=== PATIENT | female | born 2000 | race Hispanic/Latino ===

== ENCOUNTER 2025-08-11 13:19 | Outpatient (CLI) | payer OTHER, SELFPAY ==
--- OUTSIDE RECORDS SUMMARY | 2025-08-08 08:37 | XMS_ITS | Continuity of Care Document ---
Author Organization [facility] Address [address] [place] [phone] Phone Care Team Providers Care Field Laborer Name Role Phone Management, Case Unavailable Unavailable [...] 25 MG - Active Procedures Procedure Date Coronavirus AG IA (Rapid Test) STREP A, [...] Encounter [facility], [address], [place], [place], [address] , tel: [phone] [facility] No Information 5 Management Case. [address], [place], [place], [address], . tel:[phone] [facility], [address], [place], [place], [address] , [place] tel: [phone] Urgent Care swollen lymph nodes (chief complaint) Acute serous otitis media, left earLocalized enlarged lymph nodesOther thyrotoxicosis w/o thyrotoxic crisisCough, unspecifiedAcute pharyngitis, unspecifiedEncount er for test, result unknown 5 [facility] Rm[address], [place], [place], [address], . tel:[phone] [facility], [address], [place], [place], [address] , [place] tel: [phone] Urgent [facility] Acute serous otitis media, left earAcute pharyngitis, unspecifiedCough, unspecified 5 Hamlet Rm. [address], [place], [place], [address], [place]. tel:[phone] OFFICE/OUTPA TIENT VISIT, EST [facility], [address], [place], [place], [address] , [place] tel: [phone] Urgent Care medication refill (chief complaint) Other thyrotoxicosis w/o thyrotoxic crisisUTIOther specified noninflammatory disorder of vaginaEncounter for test, result unknown 5 Bruce Kent. [address], [place], [place], [address], . tel:[phone] OFFICE/OUTPA TIENT VISIT, NEW [facility], [address], [place], [place], [address] , tel: [phone] Urgent Care abdominal pain/med refill (chief complaint)h eadache (chief complaint) Other thyrotoxicosis w/o thyrotoxic crisisEncounter for screening for other disorderEncounter for test, result unknown Keny Valencia. [address], [place], [place], [address], . tel:[phone] Family History Family Member Type Diagnosis Age At Onset No Information Payers Payer name Insurance type Covered democrat ID Melba Almanzar (s) [id number] Social History Type Description Quantity Date Captured Comments Alcohol Use Details Unknown Caffeine Use Details Unknown Tobacco Use Status No Information Smoking Status No Information Sex Female Sexual Orientation Straight or heterosexual Jul Gender Identity Female Chief Complaint And Reason For Visit No Information Reason For Referral Reason For Referral No Information Plan Of Treatment Date Type Action Status Appointment Tracey Gimenez BOOKED Appointment Tracey Gimenez BOOKED Appointment Tracey Gimenez BOOKED History Of Present Illness Encounter Date Complaint [...] before. Does have an upcoming appointment with WORKERS COMPENSATION CLAIMS ASSISTANT.Denies fatigue, headache, rhinorrhea, sinus congestion, sore throat, cough, dyspnea, emesis, loss of smell or taste, or known COVID exposure.(metallurgical technician used.)Physical Exam:General: NAD. Awake, alert, conversant, cooperative, [...] methimazole 5mg x1 month. History obtained via Street[employer] Data unit leader.Pt was receiving care for hyperthyroidism in [place], but recently moved here to [place] around 1 month ago. Has been out [...]
[2025-08-11 14:09] LABS: Hematocrit 38.5 % (37.0-47.0); Hemoglobin 12.7 g/dL (12.0-15.0); Mean Corpuscular HGB Conc 33.0 g/dl (32-36); Mean Corpuscular Hemoglobin 29.7 pg (26-34); Mean Corpuscular Volume 90.2 fl (80-100); Platelet Count Result 296 k/mm3 (150-375); Red Blood Count 4.27 M/mm3 (4.2-5.4); White Blood Count 7.4 K/mm3 (4.5-10.0)
[2025-08-11 14:44] LABS: Free T4 Free Thyroxine 1.08 ng/dL (0.78-2.19)
[2025-08-11 14:52] LABS: Thyroid Stimulating Hormone 0.729 uIU/mL (0.465-4.680)
[2025-08-11 14:55] LABS: Syphilis IgG/IgM Antibody Non-Reactive (Nonreactive)
[2025-08-11 14:59] LABS: HIV 1/2 Ab P24 Ag Result Negative (Negative); Hepatitis B Surface Antigen Negative (Negative)
[2025-08-11 15:02] LABS: Beta HCG Quantitative 35971.00 mIU/ML
[2025-08-12 07:09] LABS: Varicella-Zoster Ab, IgG Non Reactive (Non Reactive)
[2025-08-12 07:09] LABS: Cytomegalovirus (CMV) Ab, IgG 2.40 U/mL (0.00-0.59)
[2025-08-16 13:08] LABS: Parvovirus B19, IgG 0.1 index (0.0-0.8); Parvovirus B19, IgM 0.3 index (0.0-0.8)
== END 2025-08-11 13:20 | disposition home or self-care (01) ==
LOC: ANHLAB 13:22
PROVIDERS: Visit Provider Student in an Organized Health Care Education/Training Program
DX: N91.2 Amenorrhea, unspecified (principal); E05.90 Thyrotoxicosis, unspecified without thyrotoxic crisis or storm; Z11.3 Encounter for screening for infections with a predominantly sexual mode of transmission
CPT/HCPCS: 36415; 84439; 84443; 84702; 85027; 86593; 86644; 86703; 86747; 86762; 86787; 86850; 86900; 86901; 87086; 87340; G0432

== ENCOUNTER 2025-10-14 11:32 | Emergency (ER) | payer OTHER, SELFPAY ==
--- OUTSIDE RECORDS SUMMARY | 2025-08-08 07:37 | XMS_ITS | Continuity of Care Document ---
Author Organization [facility] Address [address] [place] [phone] Phone Care Team Providers Care Ticket Sorter Name Role Phone Management, Case Unavailable Unavailable Allergies, Adverse Reactions, Alerts Substance Reaction Status Criticality No Known Allergies Active No Inform ation Medications Medication Instructions Dosage Effective Dates (start - stop) Status Comments Mapap (acetaminophen) 500 mg capsule take 2 capsule by oral route every 8 hours as needed as needed 1000 MG - Active methimazole 5 mg tablet take 1 tablet by oral route every day 5 MG - Active Macrobid 100 mg capsule take 1 capsule by oral route every 12 hours with food for 7 days - Active dicyclomine 20 mg tablet take 1 tablet by oral route every 6-8 hours as needed for abdominal pain - Active atenolol 25 mg tablet take 1 tablet by o ral route every day 25 MG - Active Procedures Procedure Date Voided Encounter Coronavirus AG IA (Rapid Test) STREP A, DNA, AMP PROBE URINE TEST, BY VISUAL COLOR CO MPARISON METHODS STREP A, DNA, AMP PROBE Coronavirus AG IA (Rapid Test) OFFICE/OUTPATIENT VISIT, EST URINE TEST, BY VISUAL COLOR CO MPARISON METHODS Urinalysis, Auto, w/o Scope Alcohol and/or drug screening OFFICE/OUTPATIENT VISIT, NEW URINE TEST, BY VISUAL COLOR CO MPARISON METHODS Advance Directives Directive Yes / No Effective Date File Name No Information Encounters Encounter Description Practice Location Reason(s) For Visit Diagnoses Date Provider Providers Copied on Encounter [facility], [address], [place], [place], [id number] , tel: [phone] [facility] No Information Jul- Management Case. [address], [place], [place], [address], . tel:[phone] [facility], [address], [place], [place], [address] , tel: [phone] [facility] No Information Jul- Patti Selby. [address], [place], [place], [id number], . tel:[phone] Referring Provider: Sola Armstrong , [address], [place], [place], [address] [place] [address] . tel:[phone] [facility], [address], [place], [place], [address] , tel: [phone] Urgent [facility] swollen lymph nodes (chief complaint) Acute serous otitis media, left earLocalized enlarged lymph nodesOther thyrotoxicosis w/o thyrotoxic crisisCough, unspecifiedAcute pharyngitis, unspecifiedEncount er for test, result unknown 5 [facility]let Rm. [address], [place], [place], [address] [place] [address], . tel:[phone] [facility], [address], [place], [place], [address] , [place] tel: [phone] [facility] Acute serous otitis media, left earAcute pharyngitis, unspecifiedCough, unspecified Jul- 5 [facility]. [address], [place], [address] [place] [address], . tel:[phone] OFFICE/OUTPA TIENT VISIT, EST [facility], [address], [place], [place], [address] , tel: [phone] Urgent Care medication refill (chief complaint) Other thyrotoxicosis w/o thyrotoxic crisisUTIOther specified noninflammatory disorder of vaginaEncounter for test, result unknown 5 Barrera Donte. [address], [place], [place], [address], [place]. tel:[phone] OFFICE/OUTPA TIENT VISIT, BERTRAM Meade, [address], [place], [place], [address] , [place] tel: [phone] Urgent [facility] abdominal pain/med refill (chief complaint)h eadache (chief complaint) Other thyrotoxicosis w/o thyrotoxic crisisEncounter for screening for other disorderEncounter for test, result unknown Keny Valencia. [address], [place], [place], [address], [place]. tel:[phone] Family History Family Member Type Diagnosis Age At Onset No Information Payers Payer name Insurance type Covered libertarian ID Melba hunter(s) Maryjane 15 [id number] Social History Type Description Quantity Date Captured Comments Alcohol Use Details Unknown Caffeine Use Details Unknown Tobacco Use Status No Information Smoking Status No Information Sex Female Sexual Orientation Straight or heterosexual Jul Gender Identity Female Chief Complaint And Reason For Visit No Information Reason For Referral Reason For Referral No Information History Of Present Illness Encounter Date Complaint History Of Prese nt Illness swollen lymph nodes Patient Summ sergioOtis Juarez, born 2000, presents with swollen lymph nodes on the left side. Past medical history includes hyperthyroidism managed with methimazole. Previously diagnosed with acute otitis media in the left ear.Current illness/concerns:1. Swollen Lymph Nodes- Large, tender, 1 cm lymph node under the left ear- Pain rated 3/10- Two palpable lymph nodes on the left jaw2. Acute Otitis Media- Previously diagnosed with left ear otitis media- Left ear has cloudy fluid and bulging TM3. - Positive test today- Last menstrual period in June- Scheduled for Women's Health appointment on 08/03 medication refill 24-year-old fe male with known hyper thyroidism presents for med refill, been out of her thyroid medication for about a month. Notes associated abdominal discomfort, nausea, diarrhea. Abdominal pain is localized more left suprapubic area and left lower quadrant, with noted urinary frequency. Denies actual dysuria, change in urine color or smell, fever, chills, back or flank pain.Also notes a new onset bump on her vagina. Denies vaginal discharge. Not had this before. Does have an upcoming appointment with REAL ESTATE ACCOUNTANT.Denies fatigue, headache, rhinorrhea, sinus congestion, sore throat, cough, dyspnea, emesis, loss of smell or taste, or known COVID exposure.(oil laboratory analyst used.)Physical Exam:General: NAD. Awake, alert, conversant, cooperative, appropriate, good eye contact, intact insight and memory.Skin: No rash or skin lesions noted on exposed skin.HEENT: EOMI grossly, conjunctiva and sclera clear.Neck: Good ROM noted passively. Thyroid not palpated.CV: RRR without murmur.Lungs: Clear bilat without rales, rhonchi, wheeze. No respiratory distress.Abdomen: Soft, nondistended, noted mild tenderness to palpation in left lower quadrant and left lateral suprapubic area mainly, no mass/rebound/guarding. Bowel sounds noted faintly..Extremities: Good ROM noted passively, bears weight well, gait normal. abdominal pain/med refill 24 y/o female w/ hx of hyperthyroidism presents to clinic after being out of methimazole 5mg x1 month. History obtained via aihuishou wheel alignment technician.Pt was receiving care for hyperthyroidism in [place], but recently moved here to [place] around 1 month ago. Has been out of meds since. Unsure if she has Grave's or other type of hyperthyroidism. Reports one month history of progressive headaches, nausea, diarrhea, palpitations, anxiety, fatigue, thinning skin, and increased hair shedding. Denies chest pain, SOB, tremors, dizziness, or syncope. No neck swelling or hoarse voice. Swallowing okay. No other PMHx. No other concerns at this time. 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
--- OUTSIDE RECORDS SUMMARY | 2025-08-08 07:37 | XMS_ITS | Continuity of Care Document ---
Author Organization [facility] Address [address] [place] [phone] Phone Care Team Providers Care Hotel Operations Manager Name Role Phone Management, Case Unavailable Unavailable [...] Encounter [facility], [address], [place], [place], [address] , tel: [phone] [facility] No Information Jul- Management Case. [address], [place], [place], [address], . tel:[phone] [facility], [address], [place], [place], [address] , tel: [phone] [facility] No Information Jul- Patti Selby. [address], [place], [place], [address], . tel:[phone] Referring Provider: Sola Armstrong , [address], [place], [place], [address] [place] [address] . tel:[phone] [facility], [address], [place], [place], [address] , tel: [phone] Urgent Care swollen lymph nodes (chief complaint) Acute serous otitis media, left earLocalized enlarged lymph nodesOther thyrotoxicosis w/o thyrotoxic crisisCough, unspecifiedAcute pharyngitis, unspecifiedEncount er for test, result unknown 5 [facility], [place], [place], [address] [place] [address], . tel:[phone] [facility], [address], [place], [place], [address] , [place] tel: [phone] Urgent [facility] Acute serous otitis media, left earAcute pharyngitis, unspecifiedCough, unspecified Jul- 5 [facility]. [address], [place], [place], [address] [place] [address], . tel:[phone] OFFICE/OUTPA TIENT VISIT, EST [facility], [address], [place], [place], [address] , tel: [phone] Urgent Care medication refill (chief complaint) Other thyrotoxicosis w/o thyrotoxic crisisUTIOther specified noninflammatory disorder of vaginaEncounter for test, result unknown 5 Barrera Donte. [address], [place], [place], [address], [place]. tel:[phone] OFFICE/OUTPA TIENT VISIT, BERTRAM Meade, [address], [place], [place], [address] , [place] tel: [phone] Urgent Care abdominal pain/med refill (chief complaint)h eadache (chief complaint) Other thyrotoxicosis w/o thyrotoxic crisisEncounter for screening for other disorderEncounter for test, result unknown Keny Valencia. [address], [place], [place], [address], [place]. tel:[phone] Family History Family Member Type Diagnosis Age At Onset No Information Payers Payer name Insurance type Covered constitution party ID Melba hunter(s) Maryjane 16 [id number] Social History Type Description Quantity Date Captured [...] before. Does have an upcoming appointment with ARCHIVES TECHNICIAN.Denies fatigue, headache, rhinorrhea, sinus congestion, sore throat, cough, dyspnea, emesis, loss of smell or taste, or known COVID exposure.(hourly sign language interpreter used.)Physical Exam:General: NAD. Awake, alert, conversant, cooperative, [...] methimazole 5mg x1 month. History obtained via [employer] american sign language interpreter.Pt was receiving care for hyperthyroidism in [place], but recently moved here to [place] around 1 month ago. Has been out [...]
--- OUTSIDE RECORDS SUMMARY | 2025-10-14 11:35 | XMS_ITS | Clinical Summary ---
Author Organization [facility] Address [address] [place] [address] Care Team Providers Care Metal Sash Setter Name Role Phone Unavailable Primary Care Provider Unavailabl e Source Comments [facility],non-owned Affiliates and Associated Physician Practices is amultiple site organization consisting of ambulatory clinics and hospital sitesin [place], [place], [place] and [place]. This disclosure is being madepursuant to the Care Everywhere program and may not contain all information available regarding this patient. Last updated 18.[facility] [employer] Allergies Active Allergy Reactions Criticality Noted Date Comments Metoprolol Other 10/11/2025 Per patient Metoprolol causes anxiety for her. Medications * Be aware that medications may not be up to date on this document. Alwaysverify current medications with the patient. Vit-DSS-Fe Fum-FA ( vitamin with iron) tablet Take 1 (one) tablet by mouth once daily Active propylthiouraci l 50 MG tablet Take 1 (one) tablet by mouth once daily Active methIMAzole (Tapazole) 5 MG tabletIndicatio ns:Hyperthyroid ism Take 1 (one) tablet by mouth once daily Reasons: Overactive Thyroid Gland 30 tablet 5 Active Encounters Date Type Department Care Team Description 10/11/2025 1:46 PM MOLECULAR PHYSICIST - 10/11/2025 11:59 PM MOLECULAR PHYSICIST Hospital Encounter [facility] [address] [place] [phone] Fadumo Joseph MD Discharge Disposition: Home or Self Care 10/11/2025 1:45 PM MOLECULAR PHYSICIST Hospital Encounter [facility] [address] [place] [phone] Fadumo Joseph MD Discharge Disposition: Home or Self Care 10/11/2025 Telephone [facility] [address] [place] [address] Paige Mayer RN Requesting Labs (Called Dr. Hurley's office to see if patient had any updated thyroid labs./) from Last 3 Months Family History Relation Name Status Comments Brother 1 Alive Brother 2 Alive Father Alive Mother Alive Sister 1 Alive Sister 2 Alive Social History Tobacco Use Types Packs/Day Years Used Date Smoking Tobacco: Never Smokeless Tobacco: Never Tobacco Cessation:Counseling Given: Not Answered Alcohol Use Standard Drinks/Week Comments Not Currently 0 (1 standard drink = 0.6 oz pur e alcohol) Estimated Date of Delivery Comme nts Yes 04/02/2026 Based on last me nstrual period of 06/26/2025 Sex and Gender Information Value Date Recorded Sex Assigned at Not on file Legal Sex Female 11:31 AM CDT Gender Identity Not on file Sexual Orientation Not on file Last Filed Vital Signs Vital Sign Reading Time Taken Comments Blood Pressure 115/59 10/11/2025 2:24 PM MOLECULAR PHYSICIST Pulse 87 10/11/2025 2:24 PM MOLECULAR PHYSICIST Temperature - - Respiratory Rate - - Oxygen Saturation - - Inhaled Oxygen Concentration - - Weight 63.5 kg (140 lb) 10/11/2025 2:24 PM MOLECULAR PHYSICIST Height 162.6 cm (5' 4) 10/11/2025 2:24 PM MOLECULAR PHYSICIST Body Mass Index 24.03 10/11/2025 2:24 PM MOLECULAR PHYSICIST Plan of Treatment Upcoming Encounters Date Type Department Care Team (Late st Contact Info) Description 11/15/2025 9:00 AM MOLECULAR PHYSICIST Appointment [facility] [address] [place] [address] Health Maintenance Due Date Last Done Comments HIV SCREENING 2014 HPV VACCINE (1 - 3-dose series) 2014 CHLAMYDIA/GONORRHEA SCREENING 2015 HEPATITIS C SCREENING 09/27/2017 DTAP/TDAP/TD VACCINES (1 - Tdap) 2018 HEPATITIS B VACCINE (1 of 3 - 19+ 3-dose series) 2018 PAP SMEAR 2020 DEPRESSION SCREENING 11/09/2024 COVID-19 VACCINE (1 - 2024-2 6 season) 2025 INFLUENZA VACCINE (#1) 2025 ZOSTER VACCINE (1 of 2) 2049 HIB VACCINE Aged Out No longer eligi ble based on patient's age to complete this topic MENINGOCOCCAL (Group B) VACC INE SHARED DECISION-MAKING Aged Out No longer eligibl e based on patient's age to complete this topic MENINGOCOCCAL GROUPS A/C/Y/W VACCINE Aged Out No longer eligible b ased on patient's age to complete this topic PNEUMOCOCCAL VACCINE Aged Out No long er eligible based on patient's age to complete this topic Respiratory Syncytial Virus (RSV) Vaccine Pt: or over 60 yrs (No Doses Required) Completed Procedures Procedure Name Priority Date/Time Associated Diagnosis Comments SONOGRAM - COMPLETE Routine 10/11/2025 1 :49 PM MOLECULAR PHYSICIST Hyperthyroidism affecting , antepartum (HCC) Encounter for supervision of normal first in second trimester ([facility]) from Last 3 Months Results * Sonogram - Complete (10/11/2025 1:49 PM MOLECULAR PHYSICIST) Linked Results Indication ======== Hyperthyroidism complicating History ====== OB History 1 Lab Tests Test Date Result NIPT Low risk Maternal Assessment Physical Exam Height 163 cm, 5 ft 4 in. Weight 64 kg, 140 lb. Initial weight 62 kg, 136 lb. BMI 24.03 kg/m . Initial BMI 23.34 kg/m . Weight gain 2 kg, 4 lb Method ====== Transabdominal ultrasound. View: Good view ========= Garcia . Number of fetuses: 1 Dating ====== Date Details Gest. age KAMRYN LMP 06/26/2025 15 w + 2 d 04/02/2026 U/S 10/11/2025 based upon AC, BPD, Femur, HC 15 w + 5 d 03/30/2026 Assigned dating based on the LMP, selected on 10/11/2025 15 w + 2 d 04/02/2026 General Evaluation Cardiac activity present. FHR 167 bpm. Presentation: cephalic Placenta: Placental site: anterior Umbilical cord: Cord vessels: 3 vessel cord. Insertion site: normal insertion Amniotic fluid: Amount of AF: normal. MVP 5.7 cm Biometry BPD 31.2 mm 15w 6d 69% Hadlock HC 113.8 mm 15w 4d 47% Hadlock AC 103.9 mm 16w 2d 85% Hadlock Femur 17.1 mm 15w 0d 35% Hadlock HC / AC 1.10 -/- 2% Hadlock Weight Calculation: EFW 132 g 66% Hadlock EFW (lb,oz) 0 lb 5 oz EFW by Hadlock ([id number]) appropriate Growth Overview Exam date GA BPD (mm) HC (mm) AC (mm) FL (mm) HL (mm) EFW (g) 10/11/2025 15w 2d 31.2 69% 113.8 47% 103.9 85% 17.1 35% 132 66% Anatomy The following structures appear normal: Head / Neck Cranium. Abdomen Cord insertion. Stomach. Kidneys. Bladder. Genitals. Extremities / Skeleton Arms. Legs. The following structures could not be adequately visualized: Heart / Thorax 4-chamber view. Maternal Structures Right Ovary Not visualized Appearance: Adnexa appears normal Left Ovary Normal Impression ========= Single, live, intrauterine at 15w 2d The size is appropriate. The amniotic fluid volume is normal. No major malformations were seen within the limitations of ultrasound. - No evidence of a neck mass/ enlarged thyroid. Follow-up ======== Detailed anatomic survey in 5 weeks. See separate [facility] visit note. Coding ====== Diagnoses O99.282, E05.90: Other endocrine, nutritional and metabolic diseases complicating , Thyrotoxicosis, unspecified without thyrotoxic crisis or storm Procedures 33309: [place] Preg Uterus >14 weeks [facility] Laterality Modality Other 10/11/2025 1:49 PM MOLECULAR PHYSICIST Eduardo Hurley MD [facility] ORDERABLES Edited Result - Final from Last [address] [place], [place] [address]R [facility]
[2025-10-14 11:37] VITALS: BP 120/73; PULSE 82; RESP 16; TEMP 36.6; O2SAT 100
--- NOTE | 2025-10-14 12:12 | ED.FEMALEGU ---
HPI - Female Genitourinary General Chief complaint: Vaginal Bleeding Stated complaint: vaginal bleeding, 16 weeks Time Seen by Provider: 10/14/25 12:10 Source: patient Mode of arrival: ambulatory Limitations: no limitations History of Present Illness HPI Narrative: 25 YEARS OLD FEMALE 16 WEEKS 1 PARA 0 0 DEVELOP SUPRAPUBIC THROBBING PAIN ASSOCIATED WITH VAGINAL SPOTTING NOTICED THIS MORNING. SHE DENIES ANY FEVER, CHILLS, NAUSEA, VOMITING, DIARRHEA, CONSTIPATION. PATIENT DOES NOT SPEAK POLISH. Related Data Allergies Allergy/AdvReac Type Severity Reaction Status Date / Time metoclopramide AdvReac Anxiety Verified 10/14/25 11:42 Review of Systems Review of Systems: All systems reviewed & are unremarkable except as noted in HPI and below PMFSH Past Medical History Medical History Thyroid disease Surgical History Surgical History History of cholecystectomy Family History Family History Grandparent Lung cancer Social History Social History Smoking status: Never smoker Alcohol intake: never Substance use: never Substance use type: does not use Lack of Transportation: No Lack of Food: Never True Current Housing: I Have Housing Concerned About Future Housing: No Difficulty Paying Gas/Electric Bills: No Difficulty Paying for Meds: No Currently Unemployed: No Education: High School Diploma/GED Difficulty w/ Childcare or Family Care: No Living arrangements: with family Occupation/Education: unemployed Gender identity (if verbalized by the patient): Female Sexual Orientation (if Verbalized by the Patient): Straight or Heterosexual Exam Narrative: GENERAL APPEARANCE: WELL-DEVELOPED, WELL-NOURISHED SKIN: NORMAL COLOR HEAD: NORMOCEPHALIC, NONTRAUMATIC EYES: CLEAR CONJUNCTIVA ENT: OROPHARYNX NORMAL, EARS NORMAL, NOSE NORMAL NECK: SUPPLE, NONTENDER CHEST AND RESPIRATORY: AIRWAY PATENT, NO RESPIRATORY DISTRESS, NO ACCESSORY MUSCLE USE HEART: REGULAR RATE/RHYTHM ABDOMEN: SOFT, NONTENDER, NO ORGANOMEGALY, QUIET BOWEL SOUNDS, pelvic exam showed insignificant abnormality, no localized tenderness, no vaginal bleed. VASCULAR: NORMAL PERIPHERAL PULSES, NORMAL CAPILLARY REFILL. 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 TESTED, NO GROSS MOTOR DEFICIT Course Vital Signs Vital signs: Vital Signs Temperature 36.6 C 10/14/25 11:37 Pulse Rate 82 10/14/25 11:37 Respiratory Rate 16 10/14/25 11:37 Blood Pressure 120/73 10/14/25 11:37 Pulse Oximetry 100 10/14/25 11:37 Oxygen Delivery Room Air 10/14/25 11:37 Temperature 36.6 C 10/14/25 11:37 Pulse Rate 82 10/14/25 11:37 Respiratory Rate 16 10/14/25 11:37 Blood Pressure 120/73 10/14/25 11:37 Pulse Oximetry 100 10/14/25 11:37 Oxygen Delivery Room Air 10/14/25 11:37 [facility] Narrative Medical decision making narrative: Differential diagnosis include threatened , urinary tract infection Physical examination showing no vaginal bleed, Blood workup today showed no significant abnormality heart tone 154 Urinalysis showed urinary tract infection Discharged home amoxicillin for 10 days Differential Diagnosis Differential Diagnosis: As above Lab Data [facility] Lab Attestation statement: I personally reviewed the patient's lab results. 10/14/25 12:43 10/14/25 12:43 Labs: Lab Results 10/14/25 10/14/25 Range/Units 12:43 15:33 WBC 9.8 (4.5-10.0) K/mm3 RBC 4.06 L (4.2-5.4) M/mm3 Hgb 12.1 (12.0-15.0) g/dL Hct 35.8 L (37.0-47.0) % MCV 88.2 (80-100) fl MCH 29.8 (26-34) pg MCHC 33.8 (32-36) g/dl RDW 13.1 (11.5-14.5) % Plt Count 309 (150-375) k/mm3 MPV 8.1 (7.4-10.4) fl Immature Gran % (Auto) 0.6 H (0-0.5) % Neut % (Auto) 77.4 H (45.5-73.1) % Lymph % (Auto) 15.7 L (18.3-44.2) % [place] % (Auto) 5.5 (2.6-8.5) % Eos % (Auto) 0.6 (0-4.4) % Baso % (Auto) 0.2 (0.2-1.2) % Lymph # (Auto) 1.54 (0.9-3.2) K/mm3 [place] # (Auto) 0.5 (0.1-0.6) K/mm3 Eos # (Auto) 0.1 (0-0.3) K/mm3 Baso # (Auto) 0.0 (0.0-0.1) K/mm3 Abs Immat Gran (auto) 0.06 H (0.00-0.031) K/mm3 Absolute Neuts (auto) 7.6 H (1.3-6.7) K/mm3 Absolute Nucleated RBC 0.000 (0.0-0.012) K/mm3 Nucleated RBC % 0.0 (0.0-0.2) % PT 12.8 (11.1-14.7) Seconds INR 0.9 APTT 29.4 (22.3-36.8) Seconds Sodium 132 L (137-145) mmol/L Potassium 3.3 L (3.4-5.0) mmol/L Chloride 106 (98-107) mmol/L Carbon Dioxide 19 L (22-30) mmol/L Anion Gap 7 (4-12) mmol/L BUN 5 L (7-17) mg/dL Creatinine 0.39 L (0.7-1.0) mg/dL Estim Creat Clear Calc 159 ml/min Estimated GFR > 60 (59 - ) Glucose 112 H (65-110) mg/dL Calcium 9.2 (8.4-10.2) mg/dL Total Bilirubin 0.3 (0.2-1.3) mg/dL AST 83 H (14-36) U/L ALT 176 H (6-35) U/L Alkaline Phosphatase 72 (38-126) U/L Total Protein 7.0 (6.3-8.2) g/dL Albumin 3.7 (3.5-5.1) g/dL Beta HCG, Quant 06385.00 mIU/ML Urine Color Yellow (Yellow) Urine Appearance Clear (Clear) Urine pH 7.0 (5.0-9.0) Ur Specific [place] 1.012 (1.001-1.035) Urine Protein Negative (Negative) mg/dL Urine Glucose (UA) Negative (Negative) mg/dL Urine Ketones 1+ H (Negative) mg/dL Ur Blood (Man) Negative (Negative) Urine Nitrate Positive H (Negative) Urine Bilirubin Negative (Negative) Urine Urobilinogen 0.2 (<2.0) mg/dL Leukocyte Esterase Rfl 1+ H (Negative) ANASTASIA/UL Urine RBC 0-2 (0-2) /hpf Urine WBC 11-20 H (0-3) /hpf Ur Squamous Epith Cells None seen (Few) /hpf Urine Bacteria 4+ H /hpf Urine Casts 0-2 Blood Type O Positive Antibody Screen Negative Screen TNP Baby's Blood Type TNP Baby's TRINITY TNP Doses of RhIg Required 0 Critical Care Time Critical Care Time Critical Care Time: Yes Time Type: Intermittent Initial evaluation, discuss w/ involved parties, attempting to gather old records: 15 minutes Documenting medical record: N/A Review of results (EKG's, labs, imaging): 5 minutes Serial repeat bedside evaluation: 15 minutes Discussing case with multiple memebers of the care team and consultants: N/A Total Critical Care Time: 35 Critical Care Time Overview: Critical time of 15 minutes to speak with the hourly sign language interpreter on arrival, during examination and at the time of discharge Discharge Plan Discharge Clinical Impression: Urinary tract infection, , threatened Patient Disposition: Home Condition: Stable Instructions: Antibiotic Form, Threatened Miscarriage (ED), Urinary Tract Infection in (ED) Additional Instructions: RETURN IF SYMPTOMS ARE WORSENING , CALL YOUR FAMILY PHYSICIAN FOR APPOINTMENT, TAKE TYLENOL NEEDED FOR ACHES AND PAIN, CONTINUE HOME MEDICATIONS. Patient Language: Gambian Prescriptions: New amoxicillin 875 mg tablet 875 mg PO Q12H Qty: 20 0RF No Action metoclopramide HCl [Reglan] 5 mg tablet 5 mg PO DAILY Qty: 30 1RF propylthiouracil 50 mg tablet 50 mg PO BID Qty: 60 2RF ondansetron HCl 4 mg tablet 4 mg PO Q6H PRN (Reason: nausea and vomiting) Qty: 30 1RF famotidine 20 mg tablet 20 mg PO DAILY Qty: 90 2RF Follow-up/Referrals: UNKNOWN,DOCTOR [Non-Staff]
[2025-10-14 12:49] LABS: Hematocrit 35.8 % (37.0-47.0); Hemoglobin 12.1 g/dL (12.0-15.0); Immature Granulocyte Percent A 0.6 % (0-0.5); Lymphocytes Absolute Auto 1.54 K/mm3 (0.9-3.2); Mean Corpuscular HGB Conc 33.8 g/dl (32-36); Mean Corpuscular Hemoglobin 29.8 pg (26-34); Mean Corpuscular Volume 88.2 fl (80-100); Nucleated Red Blood Cells Absolute Auto 0.000 K/mm3 (0.0-0.012); Nucleated Red Blood Cells Perc 0.0 % (0.0-0.2); Platelet Count Result 309 k/mm3 (150-375); Red Blood Count 4.06 M/mm3 (4.2-5.4); White Blood Count 9.8 K/mm3 (4.5-10.0)
[2025-10-14 12:58] LABS: INR 0.9; Prothrombin Time 12.8 Seconds (11.1-14.7)
[2025-10-14 12:59] LABS: Partial Thromboplastin Time 29.4 Seconds (22.3-36.8)
[2025-10-14 13:01] LABS: Alanine Aminotransferase 176 U/L (6-35); Albumin Level 3.7 g/dL (3.5-5.1); Alkaline Phosphatase 72 U/L (38-126); Anion Gap 7 mmol/L (4-12); Aspartate Amino Transferase 83 U/L (14-36); Bilirubin,Total 0.3 mg/dL (0.2-1.3); Blood Urea Nitrogen 5 mg/dL (7-17); Calcium 9.2 mg/dL (8.4-10.2); Carbon Dioxide 19 mmol/L (22-30); Chloride 106 mmol/L (98-107); Estimated CRCL calculation 159 ml/min; Estimated Glomerular Filt Rate > 60; Glucose 112 mg/dL (65-110); Potassium 3.3 mmol/L (3.4-5.0); Sodium 132 mmol/L (137-145); Total Protein 7.0 g/dL (6.3-8.2)
[2025-10-14 15:48] LABS: Add Urine Microscopic? YES; Appearance Urine Clear (Clear); Glucose Urine UA Negative (Negative); Leukocyte Esterase Ur 1+ LEU/UL (Negative); Nitrate Urine Positive (Negative); Non Pathogenic Casts 0-2; Specific Grav Ur 1.012 (1.001-1.035)
[2025-10-14 16:41] VITALS: BP 109/62; PULSE 74; RESP 18; TEMP 36.7; O2SAT 100
== END 2025-10-14 16:42 | disposition home or self-care (01) ==
PROVIDERS: Emergency Provider Emergency Medicine
DX: O20.0 Threatened abortion (principal); O23.42 Unspecified infection of urinary tract in pregnancy, second trimester; N39.0 Urinary tract infection, site not specified; O99.282 Endocrine, nutritional and metabolic diseases complicating pregnancy, second trimester; E07.9 Disorder of thyroid, unspecified; Z3A.16 16 weeks gestation of pregnancy; Z90.49 Acquired absence of other specified parts of digestive tract
CPT/HCPCS: 36415; 80053; 81001; 84702; 85025; 85461; 85610; 85730; 86850; 86900; 86901; 87086; 87186; 99284